=== PATIENT | male | born 1955 | race Caucasian/White ===

== ENCOUNTER → 2016-08-04 | Outpatient (CLI) | payer OTHER ==
[~2016-08-04] MED LIST: ASPI81TA28 PO; DOXY100C76 PO; DXY50 PO; LISI-787 PO; LPR25 PO
--- NOTE | 2016-08-04 07:38 | DIAGNOSTIC IMAGING REPORT ---
BILIARY ULTRASOUND CLINICAL HISTORY: Gallbladder polyp COMPARISON STUDY: 06/30/2015 FINDINGS: The pancreas was suboptimally visualized. No hepatic masses are identified. There is no ductal dilatation. There is no right-sided hydronephrosis. The common bile duct measures 3 mm. 2 tiny gallbladder polyps are suspected. No shadowing calculi are visualized. There is a 14 mm right adrenal gland mass. This was visualized on a prior chest angiogram dated 03/28/2016 IMPRESSION: 1. 2 tiny gallbladder polyps are visualized. No shadowing calculi are delineated 2. No evidence of ductal dilatation 3. 14 mm right adrenal gland nodule Electronically signed by: Klever Connor M.D. 08/04/2016 7:36 AM Dictated Date/Time: 08/04/2016 7:33 AM
[2016-08-04 09:32] LABS: BASO % 0.8 %; BASO ABS # 0.04 K/uL (0-0.2); COMPLETE YES; EOS % 3.4 %; HEMATOCRIT 41.9 % (42-52); IG% 0.2 %; LYMPH % 29.4 %; LYMPH ABS # 1.46 K/uL (1.2-3.4); MEAN CELL VOLUME 79.7 fL (80-100); MEAN CORPUSCULAR HEMOGLOBIN 26.4 pg (25-34); MEAN CORPUSCULAR HGB CONC 33.2 g/dl (32-36); MEAN PLATELET VOLUME 9.3 fL (7.4-10.4); MONO % 13.3 %; NEUT % 52.9 %; PLATELET COUNT 270 K/uL (130-400); RED BLOOD COUNT 5.26 M/uL (4.7-6.1); WHITE BLOOD COUNT 4.97 K/uL (4.8-10.8)
[2016-08-04 09:46] LABS: ALT/SGPT 27 U/L (12-78); AST/SGOT 23 U/L (15-37); BLOOD UREA NITROGEN 13 mg/dl (7-18); BUN/CREATININE RATIO 12.2 (10-20); CALCIUM 8.7 mg/dl (8.5-10.1); CARBON DIOXIDE 27 mmol/L (21-32); CHLORIDE 105 mmol/L (98-107); GLUCOSE 96 mg/dl (70-99); POTASSIUM 4.1 mmol/L (3.5-5.1); SODIUM 140 mmol/L (136-145)
[2016-08-04 09:52] LABS: ALB/GLOB RATIO 1.1 (0.9-2); ALKALINE PHOSPHATASE 73 U/L (45-117); CHOLESTEROL 211 mg/dl (0-200); CHOLESTEROL/HDL RATIO 2.6; HDL CHOLESTEROL 81 mg/dl; LDL CHOLESTEROL CALCULATED 107 mg/dl; PROSTATE SPECIFIC ANTIGEN 0.622 ng/ml (0.000-4.000); TRIGLYCERIDES 114 mg/dl (0-150); VERY LOW DENSITY LIPOPROT CALC 23 mg/dl
== END | disposition home or self-care (01) ==
LOC: C.ULTR 06:43
PROVIDERS: ATTEND Nurse Practitioner Family
DX: K82.4 Cholesterolosis of gallbladder (principal); E27.9 Disorder of adrenal gland, unspecified

== ENCOUNTER 2016-08-17 16:12 | Emergency (ER) | payer OTHER ==
[~2016-08-17] VITALS: Ht 170.2 cm; Wt 90.8 kg
[~2016-08-17 16:12] MED LIST changes: -ASPI81TA28 PO; -DXY50 PO; -LPR25 PO
[2016-08-17 16:18] VITALS: TEMP 36.8; Ht 170.2 cm; Wt 90.8 kg
[2016-08-17 16:45] LABS: BASO % 0.6 %; BASO ABS # 0.04 K/uL (0-0.2); COMPLETE YES; EOS % 2.4 %; HEMATOCRIT 41.9 % (42-52); IG% 0.3 %; LYMPH % 29.4 %; LYMPH ABS # 2.05 K/uL (1.2-3.4); MEAN CELL VOLUME 79.4 fL (80-100); MEAN CORPUSCULAR HEMOGLOBIN 26.3 pg (25-34); MEAN CORPUSCULAR HGB CONC 33.2 g/dl (32-36); MEAN PLATELET VOLUME 8.6 fL (7.4-10.4); MONO % 10.2 %; NEUT % 57.1 %; PLATELET COUNT 233 K/uL (130-400); RED BLOOD COUNT 5.28 M/uL (4.7-6.1); WHITE BLOOD COUNT 6.97 K/uL (4.8-10.8)
[2016-08-17 16:54] LABS: BUN/CREATININE RATIO 11.7 (10-20); CALCIUM 9.1 mg/dl (8.5-10.1); CREATININE 1.4 mg/dl (0.60-1.40); POTASSIUM 4.2 mmol/L (3.5-5.1)
[2016-08-17] MEDS ORDERED: LPR25 PO (16:58)
[2016-08-17] MEDS ORDERED: ASPI81TA28 PO (16:58)
[2016-08-17] MEDS ORDERED: DXY50 PO (16:58)
[2016-08-17] MEDS ORDERED: OPTIRAY 320 IV PRN (17:00)
--- NOTE | 2016-08-17 17:33 | DIAGNOSTIC IMAGING REPORT ---
CT OF THE ABDOMEN AND PELVIS WITH CONTRAST CLINICAL HISTORY: Left flank pain. COMPARISON STUDY: Chest CT March 28, 2016 and right upper quadrant ultrasound August 04, 2016. TECHNIQUE: Following IV administration of 90 mL of Optiray-320, axial images of the abdomen and pelvis were obtained from the lung bases to the proximal femurs. Images were reviewed in the axial, sagittal, and coronal planes. IV contrast was administered without complication. CT DOSE: 505.74 mGy.cm FINDINGS: Lung bases are clear. No pneumatosis, free air or portal venous gas is present. There may be mild fatty infiltration of the liver. A 2.2 cm right adrenal nodule is unchanged since prior CT of March 28, 2016. This likely reflects an adenoma. There are left-sided parapelvic cysts. The caliber and wall thickness of small and large bowel are normal. The appendix is normal. There is extensive left colon diverticulosis without evidence for acute diverticulitis. There is no hydronephrosis. No suspicious skeletal lesions are identified. No lymphadenopathy is present. There is no biliary or pancreatic ductal dilatation. IMPRESSION: 1. No acute process within the abdomen or pelvis. 2. Left colon diverticulosis without evidence for acute diverticulitis. 3. Left-sided parapelvic cysts. 4. 2.2 cm right adrenal nodule. While indeterminate, this likely reflects an adenoma. Electronically signed by: Rui Ace M.D. 08/17/2016 5:31 PM Dictated Date/Time: 08/17/2016 5:22 PM
[2016-08-17 18:04] LABS: URINE APPEARANCE CLEAR (CLEAR); URINE BILIRUBIN NEG (NEG); URINE COLOR YELLOW; URINE EPITHELIAL CELL AUTO 0-5 /lpf (0-5); URINE NITRITE NEG (NEG); URINE PH 5.5 (4.5-7.5); URINE SPECIFIC GRAVITY 1.005 (1.000-1.030); UROBILINOGEN NEG (NEG); ZZUR CULT IF INDIC CLEAN CATCH NO
[2016-08-17 18:09] LABS: MANUAL MICROSCOPIC REQUIRED? NO; REVIEW REQ? NO
[2016-08-17 19:02] VITALS: BP 145/90; PULSE 79; O2SAT 99
--- NOTE | 2016-08-17 21:19 | EMERGENCY ROOM VISIT NOTE ---
History Report prepared by Iva: Marshal Patel Under the Supervision of: Dr. Dante Brunson D.O. First contact with patient: 16:25 Chief Complaint: FLANK PAIN Stated Complaint: LT FLANK PAIN X2 WEEKS History of Present Illness The patient is a 60 year old male who presents to the Emergency Room with complaints of waxing and waning left flank pain beginning 2 weeks ago. He describes his pain as "dull", and notes it does not radiate. His pain is aggravated by lifting and is better with rest, being still, and Tylenol. His pain is worse later in the day. He notes having a history of gallbladder polyps , and open heart surgery this past March at [place]. He notes he had a CTA in early March of 2016 which did not show any abdominal aneurism. The patient admits to having some shortness of breath upon exertion such as going up steps, since the open heart surgery in March. He denies having any chest pain, nausea, vomiting, diarrhea, pain or numbness down his legs, or pain or burning during urination. He notes he had called his PCP who referred him to the ER given his history of heart issues. The patient takes a baby Aspirin. He denies any history of diverticulitis. Source of History: patient Onset: 2 weeks ago Position: other (left flank pain) Quality: dull Timing: waxes/wanes Modifying Factors (Worsening): movement (lifting) Modifying Factors (Relieving): rest, tylenol, other (being still) Associated Symptoms: + SOB (upon exertion), No chest pain, No diarrhea, No nausea, No numbness (no numbness down legs), No urinary symptoms (no pain or burning), No vomiting Review of Systems See HPI for pertinent positives & negatives. A total of 10 systems reviewed and were otherwise negative. Past Medical & Surgical Medical Problems: (1) Diverticulosis Colon (W/O Ment Of Hemorrhage) (2) HTN (hypertension) (3) Hypertension Nos Family History Diabetes mellitus FH: cancer FH: heart disease FH: lung disease Hypertension Social History Smoking Status: Never Smoker Smokeless Tobacco Use: No Alcohol Use: occasionally Marital Status: Housing Status: lives with family Occupation Status: employed Current/Historical Medications Scheduled Aspirin (Aspirin Ec), 81 MG PO DAILY Doxycycline Hyclate (Doxycycline Hyclate), 50 MG PO BID Lisinopril/Hctz (Zestoretic 20MG/12.5MG), 1 TAB PO DAILY Metoprolol Tartrate (Lopressor), 25 MG PO BID Allergies Coded Allergies: No Known Allergies (Verified , 03/22/14) Physical Exam Vital Signs Date Time Temp Pulse Resp B/P Pulse Ox O2 Delivery O2 Flow Rate FiO2 08/17/16 19:02 79 18 145/90 99 08/17/16 17:53 89 18 141/66 95 Room Air 08/17/16 16:18 36.8 92 18 168/99 97 Room Air Physical Exam GENERAL: Sitting in bed, alert, well appearing, well nourished, no distress, non -toxic EYE EXAM: normal conjunctiva OROPHARYNX: no exudate, no erythema, lips, buccal mucosa, and tongue normal and mucous membranes are moist NECK: supple, no nuchal rigidity, no adenopathy, non-tender LUNGS: Clear to auscultation. Normal chest wall mechanics HEART: no murmurs, S1 normal and S2 normal ABDOMEN: abdomen soft, non-tender, normo-active bowel sounds, no masses, no rebound or guarding. BACK: Slight reproducible tenderness to the left lower back and paraspinal region. SKIN: no rashes and no bruising UPPER EXTREMITIES: upper extremities are grossly normal. LOWER EXTREMITIES: No pitting edema. NEURO EXAM: Normal sensorium, cranial nerves II-XII grossly intact, normal speech, no gross weakness of arms, no gross weakness of legs. No drift. Gross sensation intact. Ambulates without difficulty. Medical Decision & Procedures ER Provider Diagnostic Interpretation: Xray results per the radiologist and my interpretation. Other results have been interpreted by the radiologist and reviewed by me. CT OF THE ABDOMEN AND PELVIS WITH CONTRAST FINDINGS: Lung bases are clear. No pneumatosis, free air or portal venous gas is present. There may be mild fatty infiltration of the liver. A 2.2 cm right adrenal nodule is unchanged since prior CT of March 28, 2016. This likely reflects an adenoma. There are left-sided parapelvic cysts. The caliber and wall thickness of small and large bowel are normal. The appendix is normal. There is extensive left colon diverticulosis without evidence for acute diverticulitis. There is no hydronephrosis. No suspicious skeletal lesions are identified. No lymphadenopathy is present. There is no biliary or pancreatic ductal dilatation. IMPRESSION: 1. No acute process within the abdomen or pelvis. 2. Left colon diverticulosis without evidence for acute diverticulitis. 3. Left-sided parapelvic cysts. 4. 2.2 cm right adrenal nodule. While indeterminate, this likely reflects an adenoma. Electronically signed by: Rui Ace M.D. 08/17/2016 5:31 PM Dictated Date/Time: 08/17/2016 5:22 PM Laboratory Results 08/17/16 16:25 Red Blood Count 5.28, Mean Corpuscular Volume 79.4, Mean Corpuscular Hemoglobin 26.3, Mean Corpuscular Hemoglobin Concent 33.2, Mean Platelet Volume 8.6, Neutrophils (%) (Auto) 57.1, Lymphocytes (%) (Auto) 29.4, Monocytes (%) (Auto) 10.2, Eosinophils (%) (Auto) 2.4, Basophils (%) (Auto) 0.6, Neutrophils # (Auto ) 3.98, Lymphocytes # (Auto) 2.05, Monocytes # (Auto) 0.71, Eosinophils # (Auto ) 0.17, Basophils # (Auto) 0.04 08/17/16 16:25 Test 08/17/16 16:25 White Blood Count 6.97 K/uL (4.8-10.8) Red Blood Count 5.28 M/uL (4.7-6.1) Hemoglobin 13.9 g/dL (14.0-18.0) Hematocrit 41.9 % (42-52) Mean Corpuscular Volume 79.4 fL (80-100) Mean Corpuscular Hemoglobin 26.3 pg (25-34) Mean Corpuscular Hemoglobin Concent 33.2 g/dl (32-36) Platelet Count 233 K/uL (130-400) Mean Platelet Volume 8.6 fL (7.4-10.4) Neutrophils (%) (Auto) 57.1 % Lymphocytes (%) (Auto) 29.4 % Monocytes (%) (Auto) 10.2 % Eosinophils (%) (Auto) 2.4 % Basophils (%) (Auto) 0.6 % Neutrophils # (Auto) 3.98 K/uL (1.4-6.5) Lymphocytes # (Auto) 2.05 K/uL (1.2-3.4) Monocytes # (Auto) 0.71 K/uL (0.11-0.59) Eosinophils # (Auto) 0.17 K/uL (0-0.5) Basophils # (Auto) 0.04 K/uL (0-0.2) RDW Standard Deviation 50.3 fL (36.4-46.3) RDW Coefficient of Variation 17.5 % (11.5-14.5) Immature Granulocyte % (Auto) 0.3 % Immature Granulocyte # (Auto) 0.02 K/uL (0.00-0.02) Urine Color YELLOW Urine Appearance CLEAR (CLEAR) Urine pH 5.5 (4.5-7.5) Urine Specific Chapman 1.005 (1.000-1.030) Urine Protein NEG (NEG) Urine Glucose (UA) NEG (NEG) Urine Ketones NEG (NEG) Urine Occult Blood NEG (NEG) Urine Nitrite NEG (NEG) Urine Bilirubin NEG (NEG) Urine Urobilinogen NEG (NEG) Urine Leukocyte Esterase NEG (NEG) Urine WBC (Auto) 0 /hpf (0-5) Urine RBC (Auto) 0-4 /hpf (0-4) Urine Hyaline Casts (Auto) 0 /lpf (0-5) Urine Epithelial Cells (Auto) 0-5 /lpf (0-5) Urine Bacteria (Auto) NEG (NEG) Anion Gap 10.0 mmol/L (3-11) Est Creatinine Clear Calc Drug Dose 60.3 ml/min Estimated GFR () 62.8 Estimated GFR (Non- 54.2 BUN/Creatinine Ratio 11.7 (10-20) Calcium Level 9.1 mg/dl (8.5-10.1) Total Bilirubin 0.3 mg/dl (0.2-1) Direct Bilirubin 0.1 mg/dl (0-0.2) Aspartate Amino Transf (AST/SGOT) 22 U/L (15-37) Alanine Aminotransferase (ALT/SGPT) 29 U/L (12-78) Alkaline Phosphatase 79 U/L (45-117) Total Protein 7.8 gm/dl (6.4-8.2) Albumin 4.1 gm/dl (3.4-5.0) Lipase 128 U/L (73-393) Laboratory results per my review. ED Course ED COURSE: Vital signs were reviewed and showed hypertensive. The patients medical record was reviewed The above diagnostic studies were performed and reviewed. ED treatments and interventions as stated above. 1647: The patient was evaluated in room C8. A complete history and physical examination was performed. 1850: Upon reevaluation, the patient is hemodynamically stable.I discussed my findings with the patient and he understands and agrees with the treatment plan. Based on the patients age, coexisting illnesses, exam and lab findings the decision to treat as an outpatient was made. The patient remained stable while under my care. The patient appeared well at the time of discharge. Medical Decision Differential diagnoses includes but is not limited to gastritis, peptic ulcer disease, GERD, gallbladder disease, pancreatitis, small bowel obstruction, acute coronary syndrome, pericarditis, ischemic bowel, irritable bowel disease, irritable bowel syndrome, appendicitis, diverticulitis, malignancy, hernia, urinary tract infection, torsion, perforation, trauma, infectious. Patient is a 60-year-old male who presents the ER for left flank pain. He notes that this has been present for the past week. 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 His pain is reproducible on exam. He is worsened with movement. He notes it is worse again today. Labs show no significant leukocytosis or anemia. BMP along with LFTs, bilirubin and lipase were normal. UA was negative. CT of his abdomen pelvis was benign. Patient was updated regards to his adenoma which is well aware of. Again I do favor this is musculoskeletal. He declined any pain medications while in the ER. He is discharged to follow-up with his PCP. Discussed with Pt concerning signs and symptoms to watch out for. Pt was instructed to follow up with their PCP and discussed with the patient their option to return to the ED at anytime for persistent or worsening symptoms. The appropriate anticipatory guidance and out-patient management, including indications for return to the emergency department, were explained at length to the patient and understood. Impression Primary Impression: Flank pain Additional Impression: Adrenal adenoma Scribe Attestation The scribe's documentation has been prepared under my direction and personally reviewed by me in its entirety. I confirm that the note above accurately reflects all work, treatment, procedures, and medical decision making performed by me. Departure Information Dispostion Home / Self-Care Forms HOME CARE DOCUMENTATION FORM, IMPORTANT VISIT INFORMATION Patient Instructions My [facility], ED Flank Pain Uncertain Cause Additional Instructions Please follow up with your primary care doctor or if you are a student [facility] with in the next 24 hours. Any worsening of your symptoms, please return to the ED immediately. This includes any fevers greater than 100.4, persistent nausea vomiting, worsening pain, passing out, blood in urine, or any other concerning signs or symptoms from your stand point. Please take Motrin or Tylenol as needed for pain. Problem Qualifiers Additional Impression: Adrenal adenoma Laterality: unspecified laterality Qualified Codes: D35.00 - Benign neoplasm of unspecified adrenal gland
== END 2016-08-17 19:03 | disposition home or self-care (01) ==
LOC: C.EDB 16:14 → C.EDC 19:03
DX: R10.9 Unspecified abdominal pain (principal); D35.00 Benign neoplasm of unspecified adrenal gland; I10 Essential (primary) hypertension; Z79.82 Long term (current) use of aspirin; Z82.49 Family history of ischemic heart disease and other diseases of the circulatory system; Z83.3 Family history of diabetes mellitus; K57.30 Diverticulosis of large intestine without perforation or abscess without bleeding; Z95.2 Presence of prosthetic heart valve

== ENCOUNTER → 2017-03-16 | Outpatient (CLI) | payer OTHER ==
[~2017-03-16] MED LIST changes: +ASPI81TA28 PO; -DOXY100C76 PO; +DXY50 PO; +LPR25 PO
[2017-03-16 14:03] LABS: BLOOD UREA NITROGEN 14 mg/dl (7-18); BUN/CREATININE RATIO 12.9 (10-20); CALCIUM 9.1 mg/dl (8.5-10.1); CARBON DIOXIDE 26 mmol/L (21-32); CHLORIDE 107 mmol/L (98-107); CHOLESTEROL 194 mg/dl (0-200); GLUCOSE 99 mg/dl (70-99); POTASSIUM 4.7 mmol/L (3.5-5.1); SODIUM 139 mmol/L (136-145)
[2017-03-16 14:06] LABS: CHOLESTEROL/HDL RATIO 2.6; HDL CHOLESTEROL 75 mg/dl; LDL CHOLESTEROL CALCULATED 98 mg/dl; TRIGLYCERIDES 107 mg/dl (0-150); VERY LOW DENSITY LIPOPROT CALC 21 mg/dl
== END | disposition home or self-care (01) ==
LOC: C.LAB 12:46
PROVIDERS: ATTEND Nurse Practitioner Family
DX: I10 Essential (primary) hypertension (principal); E78.5 Hyperlipidemia, unspecified

== ENCOUNTER → 2017-05-16 | Outpatient (CLI) | payer OTHER ==
--- NOTE | 2017-05-16 15:44 | DIAGNOSTIC IMAGING REPORT ---
CT OF THE CHEST WITH IV CONTRAST CLINICAL HISTORY: I71.9 AORTIC ROOT ANEURYSM STATUS POST AORTIC VALVE AND ROOT REPLACEMENT COMPARISON STUDY: 03/28/2016 TECHNIQUE: Following the IV administration of 120 mL of Optiray-320, CT of the thorax was performed from the thoracic inlet to the lung bases. Images are reviewed in the axial, sagittal, and coronal planes. IV contrast was administered without complication. A dose lowering technique was utilized adhering to the principles of ALARA. CT DOSE: 336.99 mGy.cm FINDINGS: Thyroid: Imaged portions of the thyroid gland are normal in appearance. Thoracic aorta: The patient is status post aortic root replacement with a worsening valve. There is no evidence of aneurysm. The ascending thoracic aorta measures 3 cm. Irregularity of the anterior wall of the proximal ascending aorta is likely secondary to coronary artery reimplantation. Pulmonary vasculature: The pulmonary trunk is normal in caliber. There are no central filling defects identified to suggest pulmonary embolus. Note that this examination was not protocoled for the evaluation of pulmonary emboli. HEART: The heart is normal in size and configuration, without pericardial effusion. Lungs and pleural spaces: The lungs and pleural spaces are clear. Mediastinum: There is no mediastinal lymphadenopathy. Charity: Clear. Axilla: Clear. Upper abdomen: There is a stable 25 mm right adrenal nodule. There is borderline hepatic steatosis. Skeletal structures: There are no lytic or blastic osseous lesions. IMPRESSION: 1. Postsurgical changes of an aortic valve replacement and aortic root replacement. 2. No evidence of pathologic adenopathy. 3. No evidence of focal pulmonary consolidation. 4. Stable 25 mm right adrenal nodule Electronically signed by: Klever Connor M.D. 05/16/2017 3:43 PM Dictated Date/Time: 05/16/2017 3:36 PM
== END | disposition home or self-care (01) ==
LOC: C.CTS 15:23
PROVIDERS: ATTEND Internal Medicine Interventional Cardiology
DX: I71.9 Aortic aneurysm of unspecified site, without rupture (principal); E27.9 Disorder of adrenal gland, unspecified; Z95.2 Presence of prosthetic heart valve

== ENCOUNTER → 2017-09-09 | Outpatient (CLI) | payer OTHER ==
--- NOTE | 2017-09-09 07:21 | DIAGNOSTIC IMAGING REPORT ---
GALLBLADDER-ABD LIMITED CLINICAL HISTORY: K82.4 Gallbladder [id number] TECHNIQUE: Ultrasound COMPARISON STUDY: 08/04/2016 FINDINGS: 2 very small unchanged gallbladder polyps. No shadowing gallstones. Common bile duct 3 mm. Liver is uniform throughout with evidence for fatty infiltration. Unchanged right adrenal nodule. Right kidney is negative for hydronephrosis.. IMPRESSION: Several small gallbladder polyps unchanged from the prior study. No shadowing gallstones. Fatty infiltration of liver. Stable right adrenal nodule. The above report was generated using voice recognition software. It may contain grammatical, syntax or spelling errors. Electronically signed by: Michael Resendiz M.D. 09/09/2017 7:20 AM Dictated Date/Time: 09/09/2017 7:18 AM
== END | disposition home or self-care (01) ==
LOC: C.ULTR 06:33
PROVIDERS: ATTEND Nurse Practitioner Family
DX: K82.4 Cholesterolosis of gallbladder (principal); K76.0 Fatty (change of) liver, not elsewhere classified

== ENCOUNTER → 2018-02-24 | Day surgery (SDC) | payer OTHER ==
[2018-02-22 08:33] VITALS: Ht 170.2 cm; Wt 82.7 kg
[~2018-02-24] VITALS: Ht 170.2 cm; Wt 82.7 kg
[~2018-02-24] MED LIST changes: +ACET-1256 PO; +AMOX500C3 PO; -ASPI81TA28 PO; +LIDOCAINE HCL 2% 2 ML VIAL (20MG/ML) ONE; +PROPOFOL IV EMULSION 10 MG/ML 20 ML VIAL ONE; +SODIUM CHLORIDE 0.9% 500ML 500 ML IV ONE
--- NOTE | 2018-02-24 15:13 | Endo History and Physical ---
History & Physical Date of Service: Feb 24, 2018. Chief Complaint: Diverticulitis Referring Physician: Anaya History of Present Illness 62 yo CM who presents for colonoscopy for followup secondary to diverticulitis. Past Surgical History Hx Cardiac Surgery: Yes (Aortic root replaced with pig valve @ [facility] [place] 03/2016) Hx Internal Defibrillator: No Hx Pacemaker: No Hx Abdominal Surgery: Yes (left inguinal hernia repaired ) Hx of Implantable Prosthesis: No Hx Post-Op Nausea and Vomiting: No Hx Cancer Surgery: No Hx Thoracic Surgery: No Hx Orthopedic: No Hx Urinary Tract Surgery: No Family History None Social History Smoking Status: Light Tobacco Smoker Hx Substance Use: No Hx Alcohol Use: Yes (1-2 drinks/day ) Allergies Coded Allergies: No Known Allergies (Verified , 02/22/18) Current Medications Reported Home Medications Medications Dose Route/Sig Max Daily Dose Days Date Category Amoxil (Amoxicillin) 500 Mg Cap 2,000 Mg PO DIRECTED PRN 02/22/18 Reported Tylenol (Acetaminophen) 500 Mg Tab 500 Mg PO Q4 PRN 02/22/18 Reported Lopressor (Metoprolol Tartrate) 25 Mg Tab 25 Mg PO BID 08/17/16 Reported Doxycycline Hyclate 50 Mg Cap 50 Mg PO BID 08/17/16 Reported Zestoretic 20MG/12.5MG (HCTZ/Lisinopril) Tab 1 Tab PO DAILY 03/26/16 Reported Vital Signs Weight (Kilograms): 82.73 Height (Feet): 5 Height (Inches): 7 Date Time Temp Pulse Resp B/P (MAP) Pulse Ox O2 Delivery O2 Flow Rate FiO2 02/24/18 14:09 36.7 96 16 113/84 (94) 96 Room Air Physical Exam General Appearance: WD/WN, no apparent distress Respiratory/Chest: Auscultation: breath sounds normal Cardiovascular: Heart Auscultation: RRR Abdomen: Bowel Sounds: normal Inspection & Palpation: soft, non-distended, no tenderness, guarding & rebound Assessment and Plan Assessment: 62 yo CM who presents for colonoscopy for followup secondary to diverticulitis. Plan: Proceed with colonoscopy.
--- NOTE | 2018-02-24 15:42 | GI REPORT ---
Patient Name: Raul Blas Procedure Date: 02/24/2018 2:23 PM Date of : 1955 Admit Type: Outpatient Age: 62 Gender: Male Attending MD: Harshal Harrell DO Procedure: Colonoscopy Providers: Harshal Harrell DO Referring MD: Salbador Julien Indications: Follow-up of diverticulitis Medicines: Monitored Anesthesia Care Complications: No immediate complications. Estimated Blood Loss: Estimated blood loss: none. Procedure: Pre-Anesthesia Assessment: - Prior to the procedure, a History and Physical was performed, and patient medications and allergies were reviewed. The patient's tolerance of previous anesthesia was also reviewed. The risks and benefits of the procedure and the sedation options and risks were discussed with the patient. All questions were answered, and informed consent was obtained. Prior Anticoagulants: The patient has taken no previous anticoagulant or antiplatelet agents. ASA Grade Assessment: II - A patient with mild systemic disease. After reviewing the risks and benefits, the patient was deemed in satisfactory condition to undergo the procedure. After I obtained informed consent, the scope was passed under direct vision. Throughout the procedure, the patient's blood pressure, pulse, and oxygen saturations were monitored continuously. The scope was introduced through the anus and advanced to the terminal ileum. The colonoscopy was performed without difficulty. The patient tolerated the procedure well. The quality of the bowel preparation was good. The terminal ileum, ileocecal valve, appendiceal orifice, and rectum were photographed. Findings: The perianal and digital rectal examinations were normal. Multiple small-mouthed diverticula were found in the sigmoid colon. Non-bleeding internal hemorrhoids were found during retroflexion. The hemorrhoids were small. Impression: - Diverticulosis in the sigmoid colon. - Non-bleeding internal hemorrhoids. - No specimens collected. Recommendation: - Resume previous diet. - Continue present medications. - Repeat colonoscopy in 10 years for surveillance. - Return to primary care physician as previously scheduled. Harshal Harrell DO 02/24/2018 3:41:36 PM This report has been signed electronically. Note Initiated On: 02/24/2018 2:23 PM Number of Addenda: 0 I attest to the content of the Intraoperative Record and orders documented therein, exceptions below {[id number]}
--- NOTE | 2018-02-24 15:43 | Discharge Instructions ---
Endoscopy Patient Instructions Date / Procedure(s) Performed Feb 24, 2018. Colonoscopy Allergy Information Coded Allergies: No Known Allergies (Verified , 02/22/18) Discharge Date / Findings Feb 24, 2018. Diverticulosis Internal hemorrhoids Medication Instructions OK to resume all medications today as prescribed Reported Home Medications Medications Dose Route/Sig Max Daily Dose Days Date Category Amoxil (Amoxicillin) 500 Mg Cap 2,000 Mg PO DIRECTED PRN 02/22/18 Reported Tylenol (Acetaminophen) 500 Mg Tab 500 Mg PO Q4 PRN 02/22/18 Reported Lopressor (Metoprolol Tartrate) 25 Mg Tab 25 Mg PO BID 08/17/16 Reported Doxycycline Hyclate 50 Mg Cap 50 Mg PO BID 08/17/16 Reported Zestoretic 20MG/12.5MG (HCTZ/Lisinopril) Tab 1 Tab PO DAILY 03/26/16 Reported Provider Instructions Activity Restrictions - No exercising or heavy lifting for 24 hours. - Do not drink alcohol the day of the procedure. - Do not drive a car or operate machinery until the day after the procedure. - Do not make any important decisions or sign important papers in 24 hours after the procedure. Following Day: - Return to full activity which may include returning to work/school. Diet Start your diet with liquids and light foods (jello, soup, juice, toast). Then eat your usual diet if not nauseated. Treatment For Common After Affects For mild abdominal pain, bloating, or excessive gas: - Rest - Eat lightly - Lie on right side Follow-Up Information Follow-up with Anaya as scheduled Anesthesia Information What You Should Know You have had a procedure that required some medicine to reduce anxiety and discomfort. This treatment is called moderate sedation. After receiving the treatment, you may be sleepy, but you will be able to breathe on your own. The effects of the treatment may last for several hours. Follow these instructions along with Activity/Diet recommendations noted above: * Do NOT do anything where dizziness or clumsiness would be dangerous. * Rest quietly at home today, then you can be up and about tomorrow. * Have a responsible person stay with you the rest of today. * You may have had an I.V. today. If so, you may take the dressing off later today. Recommendations Call your doctor if: * Trouble breathing * Continuous vomiting for more than 24 hours * Temperature above 101 degrees * Severe abdominal pain or bloating * Pain not relieved by pain medicine ordered * There is increased drainage or redness from any incision * A large amount of rectal bleeding greater than 2-3 tablespoons. (If you had a polyp/s removed or have hemorrhoids, a small amount of blood - from the rectum is to be expected.) * You have any unanswered questions or concerns. IN THE EVENT OF A SERIOUS EMERGENCY, GO TO THE NEAREST EMERGENCY ROOM Your discharge instructions were prepared by provider Harshal Harrell. Patient Instructions Signature Page Raul Blas Patient (or Guardian) Signature/Date: I have read and understand the instructions given to me by my caregivers. Caregiver/RN/Doctor Signature/Date: The above-named patient and/or guardian has received patient instructions on this date. + Original Patient Signature Page (only) stays with chart. Please make copy for patient.
--- NOTE | 2018-02-24 15:54 | Anesthesiology Progress Note ---
Anesthesia Post Op Note Date & Time Feb 24, 2018 at 15:53 Vital Signs Pain Intensity: 0 Vital Signs Past 12 Hours Date Time Temp Pulse Resp B/P (MAP) Pulse Ox O2 Delivery O2 Flow Rate FiO2 02/24/18 15:38 92 16 104/66 (79) 99 Room Air 02/24/18 14:09 36.7 96 16 113/84 (94) 96 Room Air Notes Mental Status: alert / awake / arousable, participated in evaluation Pt Amnestic to Procedure: Yes Nausea / Vomiting: adequately controlled Pain: adequately controlled Airway Patency, RR, SpO2: stable & adequate BP & HR: stable & adequate Hydration State: stable & adequate Anesthetic Complications: no major complications apparent
[2018-02-24 16:08] VITALS: BP 120/82; PULSE 77; O2SAT 93
== END | disposition home or self-care (01) ==
LOC: C.GI 13:13
PROVIDERS: ATTEND Internal Medicine
DX: K57.30 Diverticulosis of large intestine without perforation or abscess without bleeding (principal); K64.8 Other hemorrhoids; F17.200 Nicotine dependence, unspecified, uncomplicated; I10 Essential (primary) hypertension; K21.9 Gastro-esophageal reflux disease without esophagitis